=== PATIENT | male | born 1965 | race Caucasian/White ===

== ENCOUNTER 2016-12-10 19:32 | Observation (INO) | payer SELFPAY ==
[~2016-12-10] VITALS: Ht 167.6 cm; Wt 88.5 kg
[~2016-12-10 19:32] MED LIST: BACTRIM,SEPT1 TABLET PO; HYDROCODON-ACE1 EAC7 PO; KEFLEX500 MG PO; PERCOCET 5/31 TABLET PO
[2016-12-10 19:57] LABS: HEMATOCRIT 41.1 % (38.0-50.0); MCH 29.7 PG (29.0-34.0); MCHC 34.3 G/DL (30.0-36.0); MCV 86.5 FL (86-99); MEAN PLAT.VOLUME 9.4 uM^3 (9.0-12.4); PLATELET COUNT 207 K/uL (156-360); RBC DIS.WIDTH-CV 13.1 % (11.8-14.6); RBC DIS.WIDTH-SD 41.1 % (39-53); RED BLOOD COUNT 4.75 M/uL (4.00-5.50); WHITE BLOOD COUNT 6.5 K/uL (4.1-10.2)
[2016-12-10 20:08] LABS: CHLORIDE 106 mEq/L (99-109); POTASSIUM 3.9 mEq/L (3.7-5.4); SODIUM 142 mEq/L (136-147)
[2016-12-10 20:09] LABS: GLUCOSE 81 mg/dL (70-99)
[2016-12-10 20:11] LABS: ANION GAP 11 MEQ/L (2-14)
[2016-12-10 20:13] LABS: GFR ESTIMATE (CALCULATED) > 59 mL/min/
[2016-12-10 20:14] LABS: UREA NITROGEN (BUN) 27 mg/dL (9-23)
[2016-12-10 23:08] LABS: HDL CHOLESTEROL 38 MG/DL (Desirable>=40); LDL CHOLESTEROL 93 mg/dL (Desirable<100); NON-HDL CHOLESTEROL 113 mg/dL (Desirable<160); TOTAL CHOLESTEROL 151 mg/dL (Desirable<200); TRIGLYCERIDES 100 MG/DL (Normal: <150)
[2016-12-10 23:17] VITALS: BP 129/77
[2016-12-11 04:25] VITALS: BP 138/82
[2016-12-11 07:07] LABS: Estimated Average Glucose 100 mg/dL (70-123); HEMOGLOBIN A1c (GLYCOHEMOGLOB) 5.1 % HGB (Below 5.7)
[2016-12-11 08:35] VITALS: BP 137/87
[2016-12-11 08:48] LABS: ADD MIUA? NO; BILIRUBIN NEGATIVE; BLOOD NEGATIVE; COLOR YELLOW ((YELLOW)); GLUCOSE (STRIP) NEGATIVE; KETONES NEGATIVE; LEUKOCYTES NEGATIVE; NITRITE NEGATIVE; PROTEIN (STRIP) NEGATIVE; SPECIFIC GRAVITY 1.029 (1.000-1.030); UCUL ADDED? NO; UROBILINOGEN 0.2 MG/DL (0.2-1.0)
[2016-12-11 09:26] LABS: AMPHETAMINES QUANT VALUE 0 NG/ML; BARBITUATES QUANT VALUE 0 NG/ML; BENZODIAZEPINES QUANT VALUE 0 NG/ML; BENZODIAZEPINES, URINE SCREEN Negative (200 ng/mL); MARIJUANA QUANT VALUE 0 NG/ML; OPIATES QUANTITATIVE VALUE 0 NG/ML; PHENCYCLIDINE QUANT VALUE 0 NG/ML
[2016-12-11 12:15] VITALS: BP 140/87
== END 2016-12-11 14:23 | disposition home or self-care (01) ==
LOC: EME 19:32 → 5WEST 21:57 → EDOF 21:57 → ENRESERV 21:59 → 5WEST 23:06 → ENPENDDIS 12-11 → 5WEST 12-11 14:23
PROVIDERS: Physician Assistant Medical
DX: R20.0 Anesthesia of skin (principal); M62.81 Muscle weakness (generalized); K21.9 Gastro-esophageal reflux disease without esophagitis; Z82.49 Family history of ischemic heart disease and other diseases of the circulatory system; Z83.3 Family history of diabetes mellitus
CPT/HCPCS: 70450; 70551; 71020; 80048; 80061; 80306 90; 81003; 83036; 85027; 93005; 93880; 99281; 99285; G0378; J1650; S0028